=== PATIENT | female | born 1990 | race African-American/Black ===

== ENCOUNTER 2019-05-17 15:56 | Emergency (ER) | payer OTHER ==
[~2019-05-17] VITALS: Ht 170.2 cm; Wt 88.5 kg
[2019-05-17 16:19] LABS: URINE BILIRUBIN NEGATIVE (Negative); URINE BLOOD TRACE (Negative); URINE CLARITY CLEAR; URINE COLOR YELLOW; URINE GLUCOSE-RANDOM* NEGATIVE (Negative); URINE KETONES NEGATIVE (Negative); URINE LEUKOCYTES-REFLEX TRACE (Negative); URINE NITRITE-REFLEX NEGATIVE (Negative); URINE PROTEIN (DIPSTICK) NEGATIVE (Negative); URINE SPECIFIC GRAVITY 1.025 (1.005-1.035); URINE UROBILINOGEN 0.2 E.U./dl (0.2-1.0)
[2019-05-17 16:56] LABS: ABSOLUTE NEUTROPHILS 2.5 thou/uL (1.4-8.2); BASOPHILS 0.4 % (0.0-2.0); EOSINOPHILS 0.8 % (0.0-3.0); HEMATOCRIT 38.7 % (37.0-47.0); HEMOGLOBIN 12.9 gm/dL (12.0-15.0); LYMPHOCYTES 45.6 % (24.0-44.0); MCH 30.2 pg (26.0-34.0); MCHC 33.4 g/dL (28.0-37.0); MCV 90.5 fL (80.0-100.0); MONOCYTES 5.6 % (1.0-8.0); PLATELET COUNT 193 thou/uL (150-400); POLYS 47.6 % (36.0-66.0); RBC 4.28 mil/uL (4.20-5.00); RDW 14.1 % (10.5-14.5); WBC 5.3 thou/uL (4.0-11.0)
[2019-05-17 17:07] LABS: CALCIUM 9.2 mg/dL (8.5-10.1); CREATININE 0.9 mg/dL (0.6-1.0); POTASSIUM 3.8 mmol/L (3.5-5.1)
[2019-05-17] MEDS ORDERED: METRONIDAZOLE500 M4 PO (17:50)
[2019-05-17 18:10] VITALS: BP 127/86
== END 2019-05-17 18:15 | disposition home or self-care (01) ==
LOC: ER 15:56
PROVIDERS: Emergency Medicine; Nurse Practitioner
DX: O98.311 Other infections with a predominantly sexual mode of transmission complicating pregnancy, first trimester (principal); A59.9 Trichomoniasis, unspecified; O20.8 Other hemorrhage in early pregnancy; O99.331 Smoking (tobacco) complicating pregnancy, first trimester; Z3A.01 Less than 8 weeks gestation of pregnancy; Z90.721 Acquired absence of ovaries, unilateral

== ENCOUNTER 2019-12-20 10:20 | Emergency (ER) | payer OTHER ==
[~2019-12-20] VITALS: Ht 172.7 cm; Wt 90.7 kg
[~2019-12-20 10:20] MED LIST: METRONIDAZOLE500 M4 PO
[2019-12-20] MEDS ORDERED: ZOFRAN ODT4 MG PO (13:01)
[2019-12-20 14:04] VITALS: BP 130/86
== END 2019-12-20 14:06 | disposition home or self-care (01) ==
LOC: ER 10:20
DX: U07.1 COVID-19 (principal); R11.2 Nausea with vomiting, unspecified; F17.210 Nicotine dependence, cigarettes, uncomplicated

== ENCOUNTER 2020-01-11 10:37 | Emergency (ER) | payer OTHER ==
[~2020-01-11] VITALS: Ht 170.2 cm; Wt 90.7 kg
[~2020-01-11 10:37] MED LIST changes: +ZOFRAN ODT4 MG PO
[2020-01-11 10:58] LABS: URINE BILIRUBIN NEGATIVE (Negative); URINE BLOOD 1+ (Negative); URINE CLARITY CLEAR; URINE COLOR YELLOW; URINE GLUCOSE-RANDOM* NEGATIVE (Negative); URINE KETONES NEGATIVE (Negative); URINE LEUKOCYTES-REFLEX NEGATIVE (Negative); URINE NITRITE-REFLEX NEGATIVE (Negative); URINE PROTEIN (DIPSTICK) NEGATIVE (Negative); URINE SPECIFIC GRAVITY 1.025 (1.005-1.035); URINE UROBILINOGEN 0.2 E.U./dl (0.2-1.0)
[2020-01-11 11:07] LABS: CASTS None Seen /LPF (None Seen); SQUAMOUS >10 Many /LPF (0-3)
[2020-01-11 11:08] LABS: BACTERIA-REFLEX None Seen /HPF (None Seen); CRYSTALS None Seen /LPF (None Seen); URINE RBC 0-2 Rare /HPF (0-2); URINE WBC-REFLEX 0-5 Rare /HPF (0-5)
[2020-01-11 12:30] LABS: ABSOLUTE NEUTROPHILS 1.5 thou/uL (1.4-8.2); BASOPHILS 0.4 % (0.0-2.0); EOSINOPHILS 1.5 % (0.0-3.0); HEMATOCRIT 35.8 % (37.0-47.0); LYMPHOCYTES 45.1 % (24.0-44.0); MCH 30.1 pg (26.0-34.0); MCHC 33.5 g/dL (28.0-37.0); MCV 89.9 fL (80.0-100.0); MONOCYTES 7.5 % (1.0-8.0); PLATELET COUNT 196 thou/uL (150-400); POLYS 45.5 % (36.0-66.0); RBC 3.99 mil/uL (4.20-5.00); RDW 13.9 % (10.5-14.5); WBC 3.3 thou/uL (4.0-11.0)
[2020-01-11 12:35] LABS: CALCIUM 8.8 mg/dL (8.5-10.1); CREATININE 0.7 mg/dL (0.6-1.0); POTASSIUM 3.9 mmol/L (3.5-5.1)
[2020-01-11 12:40] LABS: ALBUMIN 3.6 g/dL (3.4-5.0); TOTAL BILIRUBIN 0.3 mg/dL (0.2-1.0); TOTAL PROTEIN 7.2 g/dL (6.4-8.2)
[2020-01-11] MEDS ORDERED: IBU600 MG PO (12:57)
[2020-01-11] MEDS ORDERED: FLEXERIL PO (12:57)
[2020-01-11 13:21] VITALS: BP 142/92
--- NOTE | 2020-01-11 21:09 | NUR ---
PATIENT RETURNED PHONE CALL AFTER MESSAGE LEFT BY PHILLIP SMITH RN AT [id number]. PATIENT CALLED BACK AT [phone] AND WAS GIVEN VERBAL CONFIRMATION OF POSITIVE COVID TEST RESULTS. EDUCATION PROVIDED REGARDING FOLLOW UP CARE, REASONS TO SEEK MEDICAL ATTENTION, STRICT QUARANTINE FOR 14 DAYS, SOCIAL DISTANCING, ETC. PATIENT STATES SHE JUST WENT THROUGH THIS A MONTH AGO AND IS AWARE OF WHAT SHE NEEDS TO DO. NO FURTHER QUESTIONS AT THIS TIME.
== END 2020-01-11 13:22 | disposition home or self-care (01) ==
LOC: ER 10:37
PROVIDERS: Emergency Medicine; Physician Assistant
DX: U07.1 COVID-19 (principal); R10.9 Unspecified abdominal pain; M62.838 Other muscle spasm; F17.210 Nicotine dependence, cigarettes, uncomplicated

== ENCOUNTER 2020-04-05 10:59 | Emergency (ER) | payer OTHER ==
[~2020-04-05] VITALS: Ht 172.7 cm; Wt 90.7 kg
[~2020-04-05 10:59] MED LIST changes: +FLEXERIL PO; +IBU600 MG PO
[2020-04-05 13:11] VITALS: BP 135/89
== END 2020-04-05 13:12 | disposition home or self-care (01) ==
LOC: ER 10:59
DX: J06.9 Acute upper respiratory infection, unspecified (principal); H92.03 Otalgia, bilateral; F17.210 Nicotine dependence, cigarettes, uncomplicated; Z90.721 Acquired absence of ovaries, unilateral; Z79.899 Other long term (current) drug therapy